=== PATIENT | male | born 1945 | race American Indian/Alaskan Native ===

== ENCOUNTER 2021-11-29 08:19 | Day surgery (SDC) | payer MEDICARE ==
[~2021-11-29 08:19] MED LIST: ePHEDrine SULFATE 50 MG/1 ML INJ ONE; fentaNYL 100 MCG/2 ML INJ ONE; propofoL 200 MG/20 ML VIAL IV ONE
[2021-11-29] MEDS ORDERED: LACTATED RINGERS 1,000 ML ONE (08:22)
--- NOTE | 2021-11-29 08:58 | Anesthesia Consultation ---
Anesthesia Consult and Med Hx Date of service: 11/29/21 - Airway Anesthetic Teeth Evaluation: Poor, Chipped ROM Head & Neck: Adequate Mental/Hyoid Distance: Adequate Mallampati Class: Class III - Pulmonary Exam CTA: Yes - Cardiac Exam Cardiac Exam: RRR - Pre-Operative Health Status ASA Pre-Surgery Classification: ASA2 - Pulmonary Hx Smoking: No (Quit 2013) Hx Respiratory Symptoms: No SOB: No - Cardiovascular System Hx Hypertension: Yes (today medication yesterday) Hx Heart Attack/AMI: No Hx Cardia Arrhythmia: No Hx Peripheral Vascular Disease: No - Central Nervous System Hx Neuromuscular Disorder: No Hx Back Pain: Yes (AND NECK; good ROM) Hx Psychiatric Problems: No - Gastrointestinal Hx Gastroesophageal Reflux Disease: Yes (controlled with medication) - Endocrine Hx Renal Disease: No - Hematic Hx Anemia: Yes Hx Sickle Cell Disease: No - Other Systems Hx Cancer: Yes (h/o colon cancer) - Additional Comments Anesthesia Medical History Comments: No GAC. No FHAC.
--- NOTE | 2021-11-29 08:59 | Anesthesia Day of Surgery ---
Anesthesia Day of Surgery - Day of Surgery Patient Examined: Yes Patient H&P Reviewed: Yes Patient is NPO: Yes Dre's Test: N/A
[2021-11-29] MEDS ORDERED: ceFAZolin/Water 2 GM/20 ML 2 GM/20 ML SYRINGE IV ONE (09:01)
[2021-11-29] MEDS ORDERED: GENTAMICIN/NS 80 MG/100 ML 100 ML IV ONE ×2 (09:05→09:08)
[2021-11-29] MEDS ORDERED: LACTATED RINGERS 1,000 ML IV SCH (09:15)
[2021-11-29] MEDS ORDERED: WATER FOR IRRIG STERILE 1,500 ML BOTTLE IR ONE (09:49)
[2021-11-29] MEDS ORDERED: IOHEXOL 300 MG/ML 50ML IV ONE (09:50)
[2021-11-29] MEDS ORDERED: ceFAZolin/STERILE WATER 2 GM/20 ML SYRINGE IV NR (10:00)
--- NOTE | 2021-11-29 10:16 | Short Stay Summary ---
Short Stay Documentation Date of service: 11/29/21 - History H&P: obtained from office - Allergies and Medications Current Medications: Allergies BEE STINGS Adverse Reaction (Severe, Uncoded 11/22/21 13:07) Swelling CAUSES SWELLING AND SOB Home Medications Medication Instructions Recorded Confirmed Last Taken Type Aspirin [Vazalore] 81 mg PO QAM 11/22/21 11/22/21 Unknown History Combigan 0.2%-0.5% Eye Drops 1 drop OU DAILY 11/22/21 11/22/21 Unknown History Cyclobenzaprine [Flexeril] 10 mg PO DAILY 11/22/21 11/22/21 Unknown History Famotidine [Pepcid] 40 mg PO DAILY 11/22/21 11/22/21 Unknown History Latanoprost 0.005% [Xalatan 0.005%] 1 drop OU QPM 11/22/21 11/22/21 Unknown History Rosuvastatin Calcium [Crestor] 10 mg PO DAILY 11/22/21 11/22/21 Unknown History Sodium Bicarbonate 650 mg PO DAILY 11/22/21 11/22/21 Unknown History Tylenol 650 mg PO DAILY 11/22/21 11/22/21 Unknown History Vitamin D3 25 mcg PO DAILY 11/22/21 11/22/21 Unknown History amLODIPine [Norvasc] 5 mg PO DAILY 11/22/21 11/22/21 Unknown History Active Medications Gentamicin Sulfate/Sodium Chloride (Gentamicin/Ns 80 Mg/100 Ml) 100 mls @ 200 mls/hr IV ONCE ONE; Protocol Stop: 11/29/21 09:37 Lactated Ringer's (Lactated Ringers) 1,000 mls @ 75 mls/hr IV DIRECT MERCED Stop: 11/29/21 23:00 - Brief post op/procedure progress note Date of procedure: 11/29/21 Pre-op diagnosis: elvated psa, bph Post-op diagnosis: same Procedure: cysot, pus 40cc, 12 cores transrectal bx Anesthesia: GETA Surgeon: RADHA JARRELL Estimated blood loss: minimal Pathology: list (prostate cores) Specimen disposition: to lab Condition: stable - Hospital course Hospital course: flomax, bactrim, ultram on chart - Disposition Condition at discharge: Stable Disposition: 01 HOME / SELF CARE / HOMELESS Short Stay Discharge Plan Follow up with: GERMAIN VARMA [Other] - 7 Days
--- NOTE | 2021-11-29 10:49 | Operative Report ---
DATE OF SURGERY: 11/29/2021 PREOPERATIVE DIAGNOSES: Elevated PSA, benign prostatic hypertrophy, prostate lesion on MRI. POSTOPERATIVE DIAGNOSES: Elevated PSA, benign prostatic hypertrophy, prostate lesion on MRI. PROCEDURES: Cystoscopy, transrectal ultrasound, biopsy of prostate (40 grams). SURGEON: Alejandro Bradley MD ANESTHESIA: General. ESTIMATED BLOOD LOSS: Minimal. FLUIDS: Crystalloid. COMPLICATIONS: No complications. INDICATIONS: This patient is a 75-year-old gentleman seen by Dr. Clarke in our [place] office. He had an elevated PSA, underwent MRI, was found to have a right posterior lesion on MRI of the prostate. There was some difficulty with scheduling and I was able to facilitate on my OR day and therefore, the patient elected to proceed with [place]. Risks, benefits, complications were explained to the patient. Written information was given. He has agreed to proceed. DESCRIPTION OF PROCEDURE: The patient was taken to the operative suite, placed in a supine position. After adequate general anesthesia, he was placed in a dorsal lithotomy position, prepped and draped in a sterile fashion. Uncircumcised phallus was scoped using a 22-Romansh Storz cystoscope, no urethral abnormalities could be appreciated. His prostate displayed some moderate trilobar obstruction. Bladder, no tumors or stones were noted, some mild diffuse trabeculation. Both ureteral orifices in normal position. No pyelograms were obtained due to fluoroscopy machine was nonfunctional. Next, using a transrectal ultrasound, biplanar measurements revealed a 40 gram gland. Attention was taken to the right posterior transition zone, which was noted on MRI; however, no obvious lesion could be appreciated, but the area was biopsied as part of right posterior cores. The patient tolerated the procedure well and was extubated and taken to recovery room. Rectal exam was benign. He will go home on Bactrim, Ultram and Flomax. TID: [id number] RECEIPT: [id number] TIFFANIE/JOE
[2021-11-29 11:29] VITALS: BP 146/66
--- NOTE | 2021-11-29 11:34 | Ultrasound Report ---
Ultrasound Transrectal INDICATION / CLINICAL INFORMATION: ELEVATED PSA TECHNIQUE: Intraoperative sonographic images were obtained during the procedure. FINDINGS: Intraoperative sonographic images for prostate biopsy. Prostate measures 3.8 x 3.4 x 4.7 cm, correspo nding to an estimated volume of 32 mL. See operative/procedure note by performing physician for full details. Ultrasound Images: 6. Signer Name: Riccardo Coleman MD Signed: 11/29/2021 11:30 AM Workstation Name: [id number]
== END 2021-11-29 12:05 | disposition home or self-care (01) ==
LOC: OR 08:19
PROVIDERS: ATTEND Urology
DX: R97.20 Elevated prostate specific antigen [PSA] (principal); N40.0 Benign prostatic hyperplasia without lower urinary tract symptoms; N42.89 Other specified disorders of prostate; E78.00 Pure hypercholesterolemia, unspecified; I10 Essential (primary) hypertension; K21.9 Gastro-esophageal reflux disease without esophagitis; Z85.038 Personal history of other malignant neoplasm of large intestine; Z91.030 Bee allergy status; Z79.899 Other long term (current) drug therapy; Z87.891 Personal history of nicotine dependence; Z79.82 Long term (current) use of aspirin; Z98.41 Cataract extraction status, right eye; Z98.890 Other specified postprocedural states; Z86.2 Personal history of diseases of the blood and blood-forming organs and certain disorders involving the immune mechanism
CPT/HCPCS: 52000; 55700; 76872; 88305; C1758; J0690; J1580; J2704; J3010; J3490; J7120